=== PATIENT | female | born 1985 | race African-American/Black ===

== ENCOUNTER 2016-08-03 09:03 | Emergency (ER) | payer OTHER ==
[2006-11-13 03:12] VITALS: BP 115/69
[~2016-08-03] VITALS: Ht 165.1 cm; Wt 79.1 kg
[~2016-08-03 09:03] MED LIST: AMITRIPTYLINE H10 M1 PO; BENTYL 10MG10 MG/CAP PO; BIRTH CONTROL; Birth control; LOPERAMIDE2 MG PO; NORCO 325 MG-51 TAB PO; PRILOTC PO; PROMETHAZINE12.5 M5 PO; REQUIP0.25 MG PO; birth control pill
[2016-08-03 09:06] VITALS: BP 132/79; TEMP 98.8
[2016-08-03 09:43] VITALS: PULSE 94
== END 2016-08-03 09:43 | disposition home or self-care (01) ==
LOC: COL.ER 09:03
DX: M77.9 Enthesopathy, unspecified (principal); M25.532 Pain in left wrist; M67.442 Ganglion, left hand

== ENCOUNTER 2016-10-03 20:30 | Emergency (ER) | payer OTHER ==
[2006-11-13 03:12] VITALS: BP 115/69
[~2016-10-03] VITALS: Ht 165.1 cm; Wt 78.6 kg
[2016-10-03 20:35] VITALS: BP 126/72; TEMP 98.1
[2016-10-03 22:06] LABS: PH 5 (5-8); URINE APPEARANCE Cloudy; URINE BACTERIA None Seen /hpf; URINE BILIRUBIN Negative (NEGATIVE); URINE BLOOD Negative (NEGATIVE); URINE COLOR Yellow; URINE GLUCOSE Negative (NEGATIVE); URINE KETONE Trace (NEGATIVE); URINE UROBILINOGEN Negative (NEGATIVE)
[2016-10-03 22:41] VITALS: PULSE 80
== END 2016-10-03 22:43 | disposition home or self-care (01) ==
LOC: COL.ER 20:30
PROVIDERS: Physician Assistant
DX: N94.6 Dysmenorrhea, unspecified (principal); R11.2 Nausea with vomiting, unspecified
CPT/HCPCS: J2550

== ENCOUNTER 2017-09-13 12:43 | Emergency (ER) | payer SELFPAY ==
[2006-11-13 03:12] VITALS: BP 115/69
[~2017-09-13] VITALS: Ht 165.1 cm; Wt 79.5 kg
[2017-09-13 12:50] VITALS: TEMP 98.1
[2017-09-13 14:05] LABS: COLLECTION METHOD CLEAN CATCH
[2017-09-13 14:12] LABS: MUCOUS Present /lpf; PH 8 (5-8); SQUAMOUS EPITHELIAL 0-2 /hpf; URINE APPEARANCE Clear; URINE BACTERIA None Seen /hpf; URINE BILIRUBIN Negative (NEGATIVE); URINE BLOOD 2+ (NEGATIVE); URINE COLOR Yellow; URINE GLUCOSE Negative (NEGATIVE); URINE KETONE Negative (NEGATIVE); URINE LEUKOCYTE ESTERASE Negative (NEGATIVE); URINE NITRATE Negative (NEGATIVE); URINE PROTEIN(semi-quant) Negative (NEGATIVE); URINE RBC >50 /hpf; URINE UROBILINOGEN Negative (NEGATIVE)
[2017-09-13] MEDS ORDERED: NORCO 325 MG-51 TAB PO (15:08)
[2017-09-13 15:47] VITALS: BP 128/85; PULSE 90
== END 2017-09-13 15:49 | disposition home or self-care (01) ==
LOC: COL.ER 12:43
PROVIDERS: Physician Assistant
DX: N94.6 Dysmenorrhea, unspecified (principal); F17.210 Nicotine dependence, cigarettes, uncomplicated; Z90.49 Acquired absence of other specified parts of digestive tract
CPT/HCPCS: J1885; J2550